=== PATIENT | female | born 1995 | race Two or more races ===

== ENCOUNTER 2022-11-21 15:56 | Emergency (ER) | payer MEDICAID ==
[~2022-11-21] VITALS: Ht 165.1 cm; Wt 64.4 kg
--- NOTE | 2022-11-21 16:10 | NUR ---
PT C/O OF ADB PAIN 5/10, MASS SHIFTING IN HER TUMMY GOING DOWN TOWARDS HER VAGINA. SHE CLAIMS SHE HAD A CYST BEFORE, BUT SMALL IN SIZE. DR RATLIFF AT BEDSIDE FOR EVAL. AWAITING FOR MD ORDERS. PT ASKED FOR A CUP OF WATER TO BE ABLE TO PEE.
--- NOTE | 2022-11-21 16:15 | NUR ---
PT WAS ABLE TO GIVE URINE SAMPLE AND SENT TO LAB.
--- NOTE | 2022-11-21 16:20 | NUR ---
US TECH AT BEDSIDE FOR PELVIC US
--- NOTE | 2022-11-21 16:30 | NUR ---
MACHINE CRATER AT BEDSIDE DRAWING BLOOD
[2022-11-21 16:42] LABS: BASOPHILS % (AUTO) 0.2 % (0.0-2.0); EOSINOPHILS % (AUTO) 0.8 % (0.0-6.0); HEMATOCRIT 41 % (33-45); HEMOGLOBIN 13.5 g/dL (11.5-14.8); LYMPHOCYTES # (AUTO) 1.2 K/uL (0.8-4.8); MEAN CORPUSCULAR HGB CONC 33 g/dl (31.0-36.0); MEAN CORPUSCULAR VOLUME 94 fL (82-100); MONOCYTES # (AUTO) 0.2 K/uL (0.1-1.30); MONOCYTES % (AUTO) 3.6 % (2.0-12.0); NEUTROPHILS # (AUTO) 4.7 K/uL (1.8-8.9); NEUTROPHILS % (AUTO) 75.4 % (43.0-81.0); PLATELET COUNT (AUTO) 201 K/uL (150-450); RED BLOOD CELL COUNT(AUTO) 4.39 MIL/uL (4.0-5.2); WHITE BLOOD COUNT (AUTO) 6.2 K/uL (4.3-11.0)
[2022-11-21 17:11] LABS: ALBUMIN 3.3 g/dL (3.4-5.0); BILIRUBIN,DIRECT 0.1 mg/dL (0.0-0.2); BILIRUBIN,TOTAL 0.5 mg/dL (0.2-1.0); CALCIUM, SERUM 8.8 mg/dL (8.5-10.1); CREATININE 0.8 mg/dL (0.6-1.3); POTASSIUM 3.7 mmol/L (3.5-5.1)
[2022-11-21 17:25] LABS: TOTAL PROTEIN, SERUM 6.5 g/dL (6.4-8.2)
[2022-11-21 17:26] LABS: BILIRUBIN,URINE NEGATIVE (NEGATIVE); COLOR,URINE YELLOW (YELLOW); LEUKOCYTE ESTERASE ,URINE NEGATIVE (NEGATIVE); NITRITE, URINE NEGATIVE (NEGATIVE); PROTEIN,URINE NEGATIVE (NEGATIVE); UGLUCOSE NEGATIVE (NEGATIVE); UROBILINOGEN,URINE 0.2 EU/dL (0.2)
[2022-11-21 18:10] LABS: RBC,URINE NONE SEEN /HPF (0-2); WBC,URINE NONE SEEN /HPF (0-3)
[2022-11-21 18:11] LABS: BACTERIA,URINE Few /HPF (None Seen); SQUAMOUS EPITHELIAL CELL,UR Moderate /HPF (None Seen)
--- NOTE | 2022-11-21 18:50 | NUR ---
Patient discharged to home in stable condition. Written and verbal after care instructions given. Patient verbalizes understanding of instruction.
[2022-11-21 19:03] VITALS: BP 110/67
== END 2022-11-21 19:03 | disposition home or self-care (01) ==
LOC: ER 15:58
DX: D27.0 Benign neoplasm of right ovary (principal); D27.1 Benign neoplasm of left ovary
CPT/HCPCS: 36415; 76856-TC; 80048-TC; 80076-TC; 81001; 84703-TC; 85025-TC

== ENCOUNTER 2024-08-17 09:13 | Emergency (ER) | payer MEDICAID, OTHER ==
[~2024-08-17] VITALS: Ht 165.1 cm; Wt 64.4 kg
[2024-08-17] MEDS ORDERED: PENICILLIN G BENZATHINE 2.4 MMU/4 ML ML IM ONE ×2 (09:30→09:39)
[2024-08-17] MEDS: PENICILLIN G BENZATHINE 2.4 MMU/4 ML ML IM ONE (09:45)
[2024-08-17 09:48] VITALS: BP 123/94; TEMP 98.1; O2SAT 100
== END 2024-08-17 09:49 | disposition home or self-care (01) ==
LOC: ER 09:22
DX: A64 Unspecified sexually transmitted disease (principal); A53.9 Syphilis, unspecified; Z88.1 Allergy status to other antibiotic agents
CPT/HCPCS: 99283; 96372; J0558

== ENCOUNTER 2025-01-19 18:24 | Emergency (ER) | payer MEDICAID ==
[~2025-01-19] VITALS: Ht 165.1 cm; Wt 64.0 kg
[2025-01-19 21:01] LABS: PLATELET COUNT (AUTO) 209 K/uL (150-450); RED BLOOD CELL COUNT(AUTO) 4.58 MIL/uL (4.0-5.2); RED CELL DISTRIBUTION WIDTH 12.2 % (11.5-15.0); WHITE BLOOD COUNT (AUTO) 7.0 K/uL (4.3-11.0)
[2025-01-19 21:05] LABS: APPEARANCE,URINE CLEAR (CLEAR); BLOOD, URINE NEGATIVE Ery/uL (NEGATIVE); LEUKOCYTE ESTERASE ,URINE NEGATIVE (NEGATIVE); NITRITE, URINE NEGATIVE (NEGATIVE); UGLUCOSE NEGATIVE (NEGATIVE)
[2025-01-19 21:08] LABS: ADD URINE CULTURE NO; SQUAMOUS EPITHELIAL CELL,UR 21-50 /HPF (None Seen)
[2025-01-19 21:18] LABS: ASPARTATE AMINOTRANSFERASE 12.0 U/L (15-37); CALCIUM, SERUM 9.0 mg/dL (8.5-10.1); CREATININE 0.7 mg/dL (0.6-1.3); SODIUM SERUM 139.0 mmol/L (136-145); TOTAL PROTEIN, SERUM 7.2 g/dL (6.4-8.2); UREA NITROGEN, BLOOD 20.0 mg/dL (7-18)
[2025-01-19] MEDS ORDERED: KETOROLAC TROMETHAMINE 15 MG/ML VIAL ONE (22:38)
[2025-01-19] MEDS: KETOROLAC TROMETHAMINE 15 MG/ML VIAL IV ONE (22:45)
[2025-01-19 22:56] LABS: PREGNANCY TEST URINE QUAL NEGATIVE (NEGATIVE)
[2025-01-19] MEDS ORDERED: IBUP-1490 PO (23:12)
[2025-01-20 01:33] VITALS: BP 121/85; TEMP 98; O2SAT 100
== END 2025-01-20 01:34 | disposition home or self-care (01) ==
LOC: ER 18:29
DX: D27.1 Benign neoplasm of left ovary (principal); Z88.1 Allergy status to other antibiotic agents
CPT/HCPCS: 99285; 96374; 76856; 85025; 80048; 87077; 87086; 83690; 80076; 84703; 87186; 81001; 36415; J1885